=== PATIENT | male | born 1980 | race Two or more races ===

== ENCOUNTER 2021-03-23 09:51 | Inpatient (IN) | payer MEDICAID, OTHER ==
[~2021-03-23] VITALS: Ht 167.6 cm; Wt 85.0 kg
[2021-03-23] MEDS ORDERED: LORazepam 2MG/ML-1ML VIAL ONE (09:59)
[2021-03-23] MEDS ORDERED: LORazepam 2MG/ML-1ML VIAL IV ONE (10:00)
[2021-03-23] MEDS ORDERED: SODIUM CHLORIDE 0.9% 1,000 ML IVB ONE (10:30)
[2021-03-23] MEDS ORDERED: PANTOPRAZOLE 40 MG TAB PO ONE (10:30)
[2021-03-23] MEDS ORDERED: DONNATAL 5ml ORAL Elix (BELLADONNA ALK-PHENOBARB) PO ONE (10:30)
[2021-03-23] MEDS ORDERED: ALUM & MAG HYDROX-SIMETH LIQ(MAALOX) 30 ML PO ONE (10:30)
[2021-03-23 10:50] LABS: Basophils # (auto) 0 10 ^3/uL (0-0.2); Basophils % (auto) 0.6 % (0.0-2.0); Eosinophils # (auto) 0.1 10 ^3/uL (0-0.8); Eosinophils % (auto) 0.9 % (0.0-7.0); Hematocrit 40.2 % (41.0-53.0); Hemoglobin 13.6 g/dL (13.5-17.5); Lymphocytes # (auto) 2.3 10 ^3/uL (0.4-5.4); Mean Corpuscular Hemoglobin 28.1 pg (28.0-32.0); Mean Corpuscular Hgb Conc. 33.8 g/dL (32.0-36.0); Mean Corpuscular Volume 83.2 fL (80.0-100.0); Monocytes % (auto) 14.9 % (0.0-12.0); Neutrophils # (auto) 3.5 10 ^3/uL (1.6-8.6); Neutrophils % (auto) 50.6 % (37.0-80.0); Nucleated Red Blood Cells % 0.4 %; Red Blood Cells 4.83 10^6/uL (4.5-5.90); White Blood Cell 6.9 10^3/uL (4.4-10.8)
[2021-03-23 10:57] LABS: Red Cell Distribution Width 26.7 % (11.8-14.3)
[2021-03-23 11:03] LABS: Albumin 3.3 g/dL (3.4-5.0); Calcium 8.8 mg/dL (8.5-10.1); INR 1.2 (0.9-1.15); Magnesium 2.9 mg/dL (1.6-2.6); Partial Thromboplastin Time 28.1 sec (23.6-33.0)
[2021-03-23 11:11] LABS: BUN/Creatinine Ratio 2.1; Bilirubin, Total 6.2 mg/dL (0.2-1.0); Total Protein 7.6 g/dL (6.4-8.2)
[2021-03-23 11:13] LABS: Potassium 2.7 mmol/L (3.5-5.1)
[2021-03-23] MEDS ORDERED: POTASSIUM EFFERVESENT TAB 25 MEQ ONE (11:28)
[2021-03-23] MEDS ORDERED: POTASSIUM EFFERVESENT TAB 25 MEQ PO ONE (11:30)
[2021-03-23] MEDS ORDERED: [UNRECOGNIZED DRUG - OTHER] IV SCH (12:00)
[2021-03-23] MEDS ORDERED: THIAMINE IV SCH (12:00)
[2021-03-23] MEDS ORDERED: MULTIPLE VITAMIN IV SCH (12:00)
[2021-03-23] MEDS ORDERED: MAGNESIUM SULF IV SCH (12:00)
[2021-03-23 13:43] LABS: Urine Bacteria NONE SEEN /hpf (None Seen); Urine Blood Negative /uL (Negative); Urine Hyaline Cast FEW /lpf (0 - 2); Urine Mucus FEW (None Seen); Urine Specific Gravity 1.005 (1.001-1.035); Urine WBC 1 /hpf (0 - 3)
[2021-03-23] MEDS ORDERED: PHENYTOIN IV DILANTIN 1,000 MG in SODIUM CHL 0.9% 250 ML IV ONE (14:00)
[2021-03-23] MEDS ORDERED: KETOROLAC TROMETH 30 MG/ML 1ML VIAL IV ONE (14:00)
[2021-03-23 14:08] LABS: Alcohol, Urine < 3.0 mg/dL (0-10); Amphetamine Screen, Urine NEGATIVE (NEGATIVE); Barbiturate Scree,Urine NEGATIVE (NEGATIVE); Benzodiazephine Screen, Urine NEGATIVE (NEGATIVE); Cannabinoid Screen, Urine NEGATIVE (NEGATIVE); Cocaine Screen, Urine NEGATIVE (NEGATIVE); Opiate Scree,Urine NEGATIVE (NEGATIVE); Phencyclidine Screen, Urine NEGATIVE (NEGATIVE)
[2021-03-23] MEDS ORDERED: DOCUSATE SOD 100 MG CAP PO PRN (14:45)
[2021-03-23] MEDS: chlordiazePOXIDE HCL 25 MG CAP PO SCH ×2 (14:45→22:43)
[2021-03-23] MEDS: SODIUM CHLORIDE 0.9% 1,000 ML IV SCH ×2 (14:45→20:46)
[2021-03-23] MEDS ORDERED: MORPHINE SULFATE INJECTION 2 MG/ML SYRG IV PRN ×2 (14:45)
[2021-03-23] MEDS ORDERED: HYDROcodone-ACET 5/325MG TAB PO PRN (14:45)
[2021-03-23] MEDS ORDERED: NITROGLYCERIN 0.4 MG SL TAB SL PRN (14:45)
[2021-03-23] MEDS ORDERED: ACETAMINOPHEN 325 MG TAB PO PRN (14:45)
[2021-03-23] MEDS ORDERED: LORazepam 0.5 MG TAB PO PRN (14:45)
[2021-03-23] MEDS ORDERED: ONDANSETRON HCL 4 MG/2 ML VIAL IV PRN (14:45)
[2021-03-23] MEDS: THIAMINE INJ 500 MG in D5W 5% 50 ML IV SCH (17:12)
[2021-03-23 18:00] VITALS: BP 120/78
[2021-03-23 22:00] VITALS: BP 123/68
[2021-03-24] MEDS: SODIUM CHLORIDE 0.9% 1,000 ML IV SCH ×4 (02:29→15:45)
[2021-03-24] MEDS ORDERED: THIAMINE 100mg/ml INJ (200mg/2ml VIAL) ONE ×2 (02:58→03:00)
[2021-03-24] MEDS: THIAMINE INJ 500 MG in D5W 5% 50 ML IV SCH ×3 (03:14→18:39)
[2021-03-24 05:00] VITALS: BP 117/65
[2021-03-24] MEDS: chlordiazePOXIDE HCL 25 MG CAP PO SCH (06:06)
[2021-03-24 07:03] LABS: Basophils # (auto) 0.1 10 ^3/uL (0-0.2); Basophils % (auto) 1.1 % (0.0-2.0); Eosinophils # (auto) 0.1 10 ^3/uL (0-0.8); Eosinophils % (auto) 1.5 % (0.0-7.0); Hematocrit 35.6 % (41.0-53.0); Hemoglobin 11.8 g/dL (13.5-17.5); Lymphocytes # (auto) 1.2 10 ^3/uL (0.4-5.4); Lymphocytes % (auto) 26.4 % (10.0-50.0); Mean Corpuscular Hemoglobin 27.7 pg (28.0-32.0); Mean Corpuscular Hgb Conc. 33.2 g/dL (32.0-36.0); Mean Corpuscular Volume 83.3 fL (80.0-100.0); Monocytes # (auto) 0.5 10 ^3/uL (0-1.3); Monocytes % (auto) 10.5 % (0.0-12.0); Neutrophils # (auto) 2.8 10 ^3/uL (1.6-8.6); Neutrophils % (auto) 60.5 % (37.0-80.0); Nucleated Red Blood Cells % 0.1 %; Red Blood Cells 4.28 10^6/uL (4.5-5.90); Red Cell Distribution Width 26.3 % (11.8-14.3); White Blood Cell 4.6 10^3/uL (4.4-10.8)
[2021-03-24 07:22] LABS: Albumin 2.9 g/dL (3.4-5.0); BUN/Creatinine Ratio 1.4; Bilirubin, Total 8.2 mg/dL (0.2-1.0); Calcium 7.9 mg/dL (8.5-10.1); Total Protein 6.4 g/dL (6.4-8.2)
[2021-03-24 08:00] VITALS: BP 120/79
[2021-03-24] MEDS: FOLIC ACID 1 MG TAB PO SCH (08:44)
[2021-03-24] MEDS ORDERED: chlordiazePOXIDE HCL 25 MG CAP PO SCH (10:00)
[2021-03-24 12:00] VITALS: BP 127/80
[2021-03-24] MEDS: POTASSIUM CHL 20 Meq TABLET PO SCH ×2 (12:41→21:44)
[2021-03-24] MEDS: POTASSIUM CHL 20MEQ/100ML 100 ML IV SCH ×2 (12:49→15:53)
[2021-03-24] MEDS ORDERED: MAGNESIUM SULFATE 1GM/100ML 100 ML IV ONE (15:00)
[2021-03-24 17:16] VITALS: BP 121/89
[2021-03-24] MEDS ORDERED: LORazepam 2MG/ML-1ML VIAL IV PRN (17:30)
[2021-03-24] MEDS: LORazepam 0.5 MG TAB PO PRN (20:14)
[2021-03-24] MEDS: SODIUM CHLOR 0.9% PF (SALINE LOCK) 10ML VIAL/SYR IV SCH (21:44)
[2021-03-24] MEDS: chlordiazePOXIDE HCL 25 MG CAP PO PRN (21:46)
[2021-03-24 22:00] VITALS: BP 135/89
[2021-03-25] MEDS: THIAMINE INJ 500 MG in D5W 5% 50 ML IV SCH ×2 (00:56→11:50)
[2021-03-25] MEDS: LORazepam 0.5 MG TAB PO PRN (03:03)
[2021-03-25 05:00] VITALS: BP 126/83
[2021-03-25] MEDS: SODIUM CHLOR 0.9% PF (SALINE LOCK) 10ML VIAL/SYR IV SCH ×2 (06:37→14:00)
[2021-03-25 06:49] LABS: Potassium 3.3 mmol/L (3.5-5.1)
[2021-03-25 06:57] LABS: Basophils # (auto) 0.1 10 ^3/uL (0-0.2); Basophils % (auto) 1.4 % (0.0-2.0); Eosinophils # (auto) 0.2 10 ^3/uL (0-0.8); Eosinophils % (auto) 3.9 % (0.0-7.0); Hematocrit 31.9 % (41.0-53.0); Hemoglobin 10.6 g/dL (13.5-17.5); Lymphocytes # (auto) 1.1 10 ^3/uL (0.4-5.4); Lymphocytes % (auto) 24.7 % (10.0-50.0); Mean Corpuscular Hemoglobin 28.5 pg (28.0-32.0); Mean Corpuscular Hgb Conc. 33.2 g/dL (32.0-36.0); Mean Corpuscular Volume 85.9 fL (80.0-100.0); Monocytes # (auto) 0.5 10 ^3/uL (0-1.3); Monocytes % (auto) 11.2 % (0.0-12.0); Neutrophils # (auto) 2.6 10 ^3/uL (1.6-8.6); Neutrophils % (auto) 58.8 % (37.0-80.0); Nucleated Red Blood Cells % 0.2 %; Red Blood Cells 3.71 10^6/uL (4.5-5.90); White Blood Cell 4.5 10^3/uL (4.4-10.8)
[2021-03-25 06:59] LABS: Albumin 2.8 g/dL (3.4-5.0); BUN/Creatinine Ratio 1.4; Calcium 7.9 mg/dL (8.5-10.1)
[2021-03-25 07:02] LABS: Bilirubin, Total 6.1 mg/dL (0.2-1.0); Red Cell Distribution Width 26.5 % (11.8-14.3); Total Protein 5.9 g/dL (6.4-8.2)
[2021-03-25 08:00] VITALS: BP 142/98
[2021-03-25 09:00] VITALS: BP 128/97
[2021-03-25] MEDS ORDERED: chlordiazePOXIDE HCL 25 MG CAP PO SCH (10:00)
[2021-03-25] MEDS: chlordiazePOXIDE HCL 25 MG CAP PO PRN (10:42)
[2021-03-25] MEDS: FOLIC ACID 1 MG TAB PO SCH (10:42)
[2021-03-25 13:00] VITALS: BP 133/92
[2021-03-25] MEDS ORDERED: POTASSIUM CHL 20 Meq TABLET PO ONE (13:30)
[2021-03-25 13:56] VITALS: BP 142/93
[2021-03-26] MEDS ORDERED: chlordiazePOXIDE HCL 25 MG CAP PO SCH (07:00)
[2021-03-26] MEDS ORDERED: THIAMINE INJ 250 MG in D5W 5% 50 ML IV SCH (10:00)
== END 2021-03-25 14:50 | disposition home or self-care (01) | DRG 53 ==
LOC: EDBD 09:51 → ER 09:51 → TELE 14:32 → TELE-WESTW 17:55
PROVIDERS: ADMIT Family Medicine; ATTEND Family Medicine
DX: G40.509 Epileptic seizures related to external causes, not intractable, without status epilepticus (principal); N17.0 Acute kidney failure with tubular necrosis; K85.90 Acute pancreatitis without necrosis or infection, unspecified; E44.1 Mild protein-calorie malnutrition; E87.1 Hypo-osmolality and hyponatremia; D68.9 Coagulation defect, unspecified; D69.6 Thrombocytopenia, unspecified; F10.239 Alcohol dependence with withdrawal, unspecified; K70.9 Alcoholic liver disease, unspecified; E87.6 Hypokalemia; I45.10 Unspecified right bundle-branch block; E66.9 Obesity, unspecified; R73.9 Hyperglycemia, unspecified; K80.20 Calculus of gallbladder without cholecystitis without obstruction; Z20.822 Contact with and (suspected) exposure to COVID-19; Z68.30 Body mass index [BMI] 30.0-30.9, adult; K82.8 Other specified diseases of gallbladder; R74.8 Abnormal levels of other serum enzymes; Y90.9 Presence of alcohol in blood, level not specified; S01.512A Laceration without foreign body of oral cavity, initial encounter; X58.XXXA Exposure to other specified factors, initial encounter; Y93.89 Activity, other specified; Y92.098 Other place in other non-institutional residence as the place of occurrence of the external cause; Y99.8 Other external cause status
CPT/HCPCS: 36415; 70551; 71045; 76705; 78226; 80053; 80307; 81001; 82140; 83690; 83735; 84443; 84484; 85025; 85610; 85730; 86850; 86900; 86901; 87426; 93005; 93306; 96365; 96366; 96375; G0378; J1885; J3480; J7060

== ENCOUNTER 2021-04-25 09:56 | Emergency (ER) | payer SELFPAY ==
[~2021-04-25] VITALS: Ht 167.6 cm; Wt 95.3 kg
[2021-04-25 13:38] LABS: Basophils # (auto) 0.1 10 ^3/uL (0-0.2); Basophils % (auto) 1.2 % (0.0-2.0); Eosinophils # (auto) 0.2 10 ^3/uL (0-0.8); Eosinophils % (auto) 2.5 % (0.0-7.0); Hematocrit 38.3 % (41.0-53.0); Hemoglobin 12.9 g/dL (13.5-17.5); Lymphocytes # (auto) 1.6 10 ^3/uL (0.4-5.4); Lymphocytes % (auto) 21.9 % (10.0-50.0); Mean Corpuscular Hemoglobin 29.6 pg (28.0-32.0); Mean Corpuscular Hgb Conc. 33.7 g/dL (32.0-36.0); Mean Corpuscular Volume 87.7 fL (80.0-100.0); Monocytes # (auto) 0.7 10 ^3/uL (0-1.3); Monocytes % (auto) 9.8 % (0.0-12.0); Neutrophils # (auto) 4.6 10 ^3/uL (1.6-8.6); Neutrophils % (auto) 64.6 % (37.0-80.0); Red Blood Cells 4.37 10^6/uL (4.5-5.90); Red Cell Distribution Width 18.2 % (11.8-14.3); White Blood Cell 7.2 10^3/uL (4.4-10.8)
[2021-04-25 13:59] LABS: Albumin 3.6 g/dL (3.4-5.0); Calcium 8.8 mg/dL (8.5-10.1)
[2021-04-25 14:06] LABS: BUN/Creatinine Ratio 5.1; Bilirubin, Total 1.4 mg/dL (0.2-1.0); Total Protein 8.3 g/dL (6.4-8.2)
[2021-04-25] MEDS ORDERED: chlordiazePOXIDE HCL 25 MG CAP PO ONE (15:30)
[2021-04-25] MEDS ORDERED: THIAMINE 100mg/ml INJ (200mg/2ml VIAL) IV ONE (15:30)
[2021-04-25] MEDS ORDERED: SODIUM CHLORIDE 0.9% 1,000 ML IV ONE ×2 (15:30)
[2021-04-25] MEDS ORDERED: CHL10C PO (17:18)
[2021-04-25 18:53] VITALS: BP 147/97
== END 2021-04-25 19:01 | disposition home or self-care (01) ==
LOC: ER 09:56
DX: F10.129 Alcohol abuse with intoxication, unspecified (principal); Y90.9 Presence of alcohol in blood, level not specified
CPT/HCPCS: 36415; 80053; 80320; 85025; 96361; 96374; 99283; J3411; J7030

== ENCOUNTER 2021-05-02 23:47 | Emergency (ER) | payer SELFPAY ==
[~2021-05-02] VITALS: Ht 167.6 cm; Wt 86.2 kg
[2021-05-02 23:48] VITALS: BP 155/97
== END 2021-05-03 00:08 | disposition left against medical advice (07) ==
LOC: ER 23:47
DX: F10.239 Alcohol dependence with withdrawal, unspecified (principal); Z53.21 Procedure and treatment not carried out due to patient leaving prior to being seen by health care provider

== ENCOUNTER 2022-05-22 10:10 | Emergency (ER) | payer MEDICAID ==
[~2022-05-22] VITALS: Ht 167.6 cm; Wt 76.3 kg
[2022-05-22 10:11] VITALS: BP 137/93
[2022-05-22] MEDS ORDERED: SODIUM CHLORIDE 0.9% 1,000 ML IV ONE ×2 (11:15)
[2022-05-22] MEDS ORDERED: THIAMINE 100mg/ml INJ (200mg/2ml VIAL) IV ONE (11:15)
[2022-05-22 11:32] LABS: Red Blood Cells 2.93 10^6/uL (4.5-5.90); White Blood Cell 4.1 10^3/uL (4.4-10.8)
[2022-05-22 11:35] LABS: Red Cell Distribution Width 15.7 % (11.8-14.3)
[2022-05-22 11:49] LABS: Albumin 3.1 g/dL (3.4-5.0); Calcium 7.6 mg/dL (8.5-10.1); Potassium 4.6 mmol/L (3.5-5.1)
[2022-05-22 11:54] LABS: Bilirubin, Total 3.4 mg/dL (0.2-1.0)
[2022-05-22 11:54] LABS: Urine Bacteria NONE SEEN /hpf (None Seen); Urine Blood Negative /uL (Negative); Urine Specific Gravity 1.006 (1.001-1.035); Urine WBC <1 /hpf (0 - 3)
[2022-05-22 12:16] LABS: BUN/Creatinine Ratio 14.1; Total Protein 8.1 g/dL (6.4-8.2)
[2022-05-22 12:37] LABS: Hemoglobin 10.7 g/dL (13.5-17.5); Mean Corpuscular Hemoglobin 37.7 pg (28.0-32.0)
[2022-05-22 12:42] LABS: Basophils % (manual) 0 (0.0-2.0); Blast Cells 0; Metamyelocytes % 0; Myelocytes % 0; Promyelocytes % 0; Reactive Lymphocytes 0
[2022-05-22 13:05] LABS: Band Neutrophils % (manual) 3; Eosinophils % (manual) 1 (0-7); Lymphocytes % (manual) 21 (10.0-50.0); Monocytes % (manual) 7 (0-12)
== END 2022-05-22 23:40 | disposition left against medical advice (07) ==
LOC: ER 10:10
DX: F10.129 Alcohol abuse with intoxication, unspecified (principal); Z53.21 Procedure and treatment not carried out due to patient leaving prior to being seen by health care provider; Y90.8 Blood alcohol level of 240 mg/100 ml or more
CPT/HCPCS: 36415; 80053; 80320; 81001; 85007; 85027; J3411; J7030; 96361; 96374